=== PATIENT | female | born 1985 | race Caucasian/White ===

== ENCOUNTER → 2021-09-27 09:00 | Outpatient (CLI) | payer OTHER, SELFPAY ==
[2021-09-27 19:04] LABS: Add Manual Diff / Slide Review NO; Basophils Absolute Auto 100 /uL (0-100); Basophils Percent Auto 0.7 % (0-2); Eosinophils Absolute Auto 100 /uL (0-450); Eosinophils Percent Auto 1.2 % (2-4); Hematocrit 41.6 % (36-46); Hemoglobin 14.7 g/dL (12.0-16.0); Lymphocytes Absolute Auto 1700 /uL (1100-4500); Lymphocytes Percent Auto 19.6 % (25-40); Mean Corpuscular HGB Conc 35.2 % (30-36); Mean Corpuscular Hemoglobin 31.4 PG (26-34); Mean Corpuscular Volume 89.2 fL (80-100); Monocytes Absolute Auto 500 /uL (0-900); Monocytes Percent Auto 5.2 % (3-14); Neutrophils Absolute Auto 6500 /uL (1500-7000); Neutrophils Percent Auto 73.3 % (50-75); Platelet Count 310 X10^3/uL (150-400); Red Blood Cell Count 4.66 X10^6/uL (4.0-5.2); Red Cell Distribution Width 13.1 % (11.6-14.8); White Blood Cell Count 8.9 X10^3/uL (4.5-11.0)
[2021-09-27 19:15] LABS: Prothrombin Time 11.3 SECONDS (10.1-12.7)
[2021-09-27 19:18] LABS: HEMOLYSIS < 15 (0-50); Iron 139 ug/dL (37-170); PTT Partial Thromboplastin Tim 36 SECONDS (26.4-36.2)
[2021-09-27 19:20] LABS: Alanine Aminotransferase 29 IU/L (<35); Albumin 4.6 g/dL (3.5-5.0); Albumin Globulin Ratio 1.7 (1.0-2.8); Alkaline Phosphatase 88 U/L (38-126); Aspartate Aminotransferase 27 IU/L (14-36); BUN Creatinine Ratio 13.4 (6-22); Bilirubin Total 0.5 mg/dL (0.2-1.3); Blood Urea Nitrogen 9 mg/dL (7-17); Calcium 9.2 mg/dL (8.4-10.2); Carbon Dioxide 26 mmol/L (22-32); Chloride 105 mmol/L (98-107); Cholesterol 225 mg/dL (140-199); Estimated Glomerular Filt Rate > 60 mL/min (>60); Globulin 2.7 g/dL (1.7-4.1); Glucose 105 mg/dL (70-100); HDL Cholesterol 39 mg/dL (40-60); HEMOLYSIS < 15 (0-50); LDL Cholesterol Calculated 151 mg/dL (<100); Potassium 3.9 mmol/L (3.4-5.1); Sodium 139 mmol/L (137-145); Total Protein 7.3 g/dL (6.3-8.2); Triglycerides 176 mg/dL (35-150)
[2021-09-27 19:21] LABS: Hemoglobin A1C% w Est Avg Glu 5.2 % (4.0-6.0)
[2021-09-27 19:31] LABS: Percent Iron Saturation 42 % (15-50); Total Iron Binding Capacity 334 ug/dL (265-497); Transferrin 252 mg/dL (206-381); Vitamin D 25 Hydroxy (D3) 34.9 ng/mL (30.0-100.0)
[2021-09-27 19:38] LABS: Free T3, Triiodothyronine Free 4.05 pg/mL (2.77-5.27)
[2021-09-27 19:51] LABS: Thyroid Stimulating Hormone 1.51 uIU/mL (0.47-4.68)
[2021-09-27 19:58] LABS: Ferritin 125 ng/mL (6-137)
[2021-09-27 20:29] LABS: Folate 19.7 ng/mL (2.76-20.0); Vitamin B12 375 pg/mL (239-931)
[2021-10-11 16:08] LABS: Vitamin B1 149.4 nmol/L (66.5-200.0)
== END ==
PROVIDERS: PCP Family Medicine; Visit Provider Surgery
DX: E46 Unspecified protein-calorie malnutrition (principal); E55.9 Vitamin D deficiency, unspecified; Z01.812 Encounter for preprocedural laboratory examination
CPT/HCPCS: 80053; 80061; 82306; 82607; 82728; 82746; 83036; 83540; 83550; 84425; 84443; 84481; 85025; 85610; 85730

== ENCOUNTER → 2021-10-10 13:12 | Outpatient (CLI) | payer OTHER, SELFPAY ==
[2021-10-10 18:57] LABS: Blood Urea Nitrogen 9 mg/dL (7-17); Carbon Dioxide 27 mmol/L (22-32); Chloride 101 mmol/L (98-107); Estimated Glomerular Filt Rate > 60 mL/min (>60); Glucose 121 mg/dL (70-100); HEMOLYSIS < 15 (0-50); Potassium 4.1 mmol/L (3.4-5.1); Sodium 138 mmol/L (137-145)
== END ==
PROVIDERS: PCP Family Medicine; Visit Provider Physician Assistant
DX: I10 Essential (primary) hypertension (principal)
CPT/HCPCS: 80048

== ENCOUNTER → 2022-01-17 07:00 | Outpatient (CLI) | payer OTHER, SELFPAY ==
[2022-01-17 20:12] LABS: COVID19 - ORCAS (NP or Nasal) Negative (Negative)
== END ==
PROVIDERS: PCP Family Medicine; Visit Provider Family Medicine
DX: Z20.822 Contact with and (suspected) exposure to COVID-19 (principal); Z01.812 Encounter for preprocedural laboratory examination
CPT/HCPCS: C9803; U0003

== ENCOUNTER → 2022-03-20 11:10 | Outpatient (CLI) | payer OTHER, SELFPAY ==
[2022-03-20 19:39] LABS: Add Manual Diff / Slide Review NO; Basophils Absolute Auto 0 /uL (0-100); Basophils Percent Auto 0.5 % (0-2); Eosinophils Absolute Auto 100 /uL (0-450); Eosinophils Percent Auto 1.3 % (2-4); Hematocrit 39.1 % (36-46); Hemoglobin 13.4 g/dL (12.0-16.0); Lymphocytes Absolute Auto 1600 /uL (1100-4500); Mean Corpuscular HGB Conc 34.2 % (30-36); Mean Corpuscular Hemoglobin 30.8 PG (26-34); Mean Corpuscular Volume 89.9 fL (80-100); Monocytes Absolute Auto 400 /uL (0-900); Monocytes Percent Auto 6.4 % (3-14); Neutrophils Absolute Auto 4300 /uL (1500-7000); Neutrophils Percent Auto 66.8 % (50-75); Platelet Count 280 X10^3/uL (150-400); Red Blood Cell Count 4.35 X10^6/uL (4.0-5.2); Red Cell Distribution Width 13.3 % (11.6-14.8); White Blood Cell Count 6.4 X10^3/uL (4.5-11.0)
[2022-03-20 20:08] LABS: Alanine Aminotransferase 28 IU/L (<35); Albumin 4.4 g/dL (3.5-5.0); Albumin Globulin Ratio 1.7 (1.0-2.8); Alkaline Phosphatase 95 U/L (38-126); Aspartate Aminotransferase 26 IU/L (14-36); BUN Creatinine Ratio 13.8 (6-22); Bilirubin Total 0.4 mg/dL (0.2-1.3); Blood Urea Nitrogen 9 mg/dL (7-17); Calcium 9.4 mg/dL (8.4-10.2); Carbon Dioxide 24 mmol/L (22-32); Chloride 102 mmol/L (98-107); Estimated Glomerular Filt Rate > 60 mL/min (>60); Globulin 2.6 g/dL (1.7-4.1); Glucose 88 mg/dL (70-100); HEMOLYSIS < 15 (0-50); Potassium 4.1 mmol/L (3.4-5.1); Sodium 138 mmol/L (137-145)
[2022-03-20 20:36] LABS: Ferritin 231 ng/mL (6-137)
[2022-03-20 20:42] LABS: HEMOLYSIS < 15 (0-50); Total Iron Binding Capacity 251 ug/dL (265-497); Transferrin 176 mg/dL (206-381)
[2022-03-20 20:50] LABS: Vitamin B12 625 pg/mL (239-931)
[2022-03-20 20:53] LABS: Iron 102 ug/dL (37-170); Percent Iron Saturation 41 % (15-50)
[2022-03-27 07:10] LABS: Vitamin B1 138.7 nmol/L (66.5-200.0)
== END ==
PROVIDERS: PCP Family Medicine; Visit Provider Physician Assistant Medical
DX: K90.9 Intestinal malabsorption, unspecified (principal); Z98.84 Bariatric surgery status
CPT/HCPCS: 80053; 82306; 82607; 82728; 83540; 83550; 84425; 85025

== ENCOUNTER → 2022-07-15 08:30 | Outpatient (CLI) | payer OTHER, SELFPAY ==
[2022-07-23 13:54] LABS: Miscellaneous to LabCorp Comment:
== END ==
PROVIDERS: PCP Physician Assistant; Visit Provider Physician Assistant
DX: N76.0 Acute vaginitis (principal); Z11.3 Encounter for screening for infections with a predominantly sexual mode of transmission; B96.89 Other specified bacterial agents as the cause of diseases classified elsewhere
CPT/HCPCS: 87491; 87591; 87661; 87798; 87801

== ENCOUNTER → 2022-08-28 09:01 | Outpatient (CLI) | payer OTHER, SELFPAY ==
[2022-08-28 19:55] LABS: Add Manual Diff / Slide Review NO; Basophils Absolute Auto 0 /uL (0-100); Basophils Percent Auto 0.4 % (0-2); Eosinophils Absolute Auto 100 /uL (0-450); Eosinophils Percent Auto 1.5 % (2-4); Hemoglobin 13.8 g/dL (12.0-16.0); Lymphocytes Absolute Auto 1400 /uL (1100-4500); Lymphocytes Percent Auto 20.9 % (25-40); Mean Corpuscular HGB Conc 34.4 % (30-36); Mean Corpuscular Hemoglobin 31.1 PG (26-34); Mean Corpuscular Volume 90.2 fL (80-100); Monocytes Absolute Auto 400 /uL (0-900); Monocytes Percent Auto 6.2 % (3-14); Neutrophils Absolute Auto 4600 /uL (1500-7000); Platelet Count 318 X10^3/uL (150-400); Red Blood Cell Count 4.43 X10^6/uL (4.0-5.2); Red Cell Distribution Width 12.6 % (11.6-14.8); White Blood Cell Count 6.5 X10^3/uL (4.5-11.0)
[2022-08-28 19:56] LABS: HEMOLYSIS < 15 (0-50); Iron 116 ug/dL (37-170)
[2022-08-28 20:02] LABS: Alanine Aminotransferase 36 IU/L (<35); Albumin 4.3 g/dL (3.5-5.0); Albumin Globulin Ratio 1.6 (1.0-2.8); Alkaline Phosphatase 81 U/L (38-126); Aspartate Aminotransferase 31 IU/L (14-36); BUN Creatinine Ratio 20.3 (6-22); Bilirubin Total 0.5 mg/dL (0.2-1.3); Blood Urea Nitrogen 12 mg/dL (7-17); Calcium 9.4 mg/dL (8.4-10.2); Carbon Dioxide 27 mmol/L (22-32); Chloride 102 mmol/L (98-107); Cholesterol 193 mg/dL (140-199); Estimated Glomerular Filt Rate > 60 mL/min (>60); Globulin 2.7 g/dL (1.7-4.1); Glucose 97 mg/dL (70-100); HDL Cholesterol 38 mg/dL (40-60); HEMOLYSIS < 15 (0-50); LDL Cholesterol Calculated 129 mg/dL (<100); Potassium 3.9 mmol/L (3.4-5.1); Sodium 138 mmol/L (137-145); Triglycerides 131 mg/dL (35-150)
[2022-08-28 20:06] LABS: Percent Iron Saturation 43 % (15-50); Total Iron Binding Capacity 268 ug/dL (265-497); Transferrin 193 mg/dL (206-381)
[2022-08-28 20:19] LABS: Vitamin D 25 Hydroxy (D3) 72.6 ng/mL (30.0-100.0)
[2022-08-28 20:29] LABS: Thyroid Stimulating Hormone 1.53 uIU/mL (0.47-4.68)
[2022-08-28 20:37] LABS: Ferritin 192 ng/mL (6-137)
[2022-08-28 21:09] LABS: Folate > 20.0 ng/mL (2.76-20.0); Vitamin B12 599 pg/mL (239-931)
[2022-08-30 05:45] LABS: Labcorp Hemoglobin (Hb) A1c 5.3 % (4.8-5.6)
[2022-09-09 08:36] LABS: Vitamin B1 144.5 nmol/L (66.5-200.0)
== END ==
PROVIDERS: PCP Physician Assistant; Visit Provider Surgery
DX: E63.9 Nutritional deficiency, unspecified (principal); K90.9 Intestinal malabsorption, unspecified; Z98.84 Bariatric surgery status
CPT/HCPCS: 80053; 80061; 82306; 82607; 82728; 82746; 83036; 83540; 83550; 84425; 84443; 85025

== ENCOUNTER → 2023-05-04 09:25 | Outpatient (CLI) | payer OTHER, SELFPAY ==
[2023-05-04 20:27] LABS: Urine N gonorrhoeae NOT DETECTED
[2023-05-04 20:34] LABS: Urine Chlamydia NOT DETECTED
== END ==
PROVIDERS: PCP Family Medicine; Visit Provider Family Medicine
DX: Z20.2 Contact with and (suspected) exposure to infections with a predominantly sexual mode of transmission (principal)
CPT/HCPCS: 87491; 87591

== ENCOUNTER → 2023-08-27 09:16 | Outpatient (CLI) | payer OTHER, SELFPAY ==
[2023-08-27 22:13] LABS: Urine N gonorrhoeae NOT DETECTED
[2023-08-27 22:25] LABS: Urine Chlamydia NOT DETECTED
== END ==
PROVIDERS: PCP Family Medicine; Visit Provider Physician Assistant Medical
DX: R10.9 Unspecified abdominal pain (principal); N89.8 Other specified noninflammatory disorders of vagina; L30.4 Erythema intertrigo; Z20.2 Contact with and (suspected) exposure to infections with a predominantly sexual mode of transmission
CPT/HCPCS: 87491; 87591; 87798; 87801

== ENCOUNTER → 2023-09-01 09:03 | Outpatient (CLI) | payer OTHER, SELFPAY ==
[2023-09-01 19:07] LABS: Add Manual Diff / Slide Review NO; Basophils Absolute Auto 0 /uL (0-100); Basophils Percent Auto 0.3 % (0-2); Eosinophils Absolute Auto 100 /uL (0-450); Eosinophils Percent Auto 1.5 % (2-4); Hematocrit 41.6 % (36-46); Hemoglobin 14.3 g/dL (12.0-16.0); Lymphocytes Absolute Auto 1400 /uL (1100-4500); Lymphocytes Percent Auto 24.4 % (25-40); Mean Corpuscular HGB Conc 34.5 % (30-36); Mean Corpuscular Hemoglobin 31.9 PG (26-34); Mean Corpuscular Volume 92.5 fL (80-100); Monocytes Absolute Auto 500 /uL (0-900); Neutrophils Absolute Auto 3800 /uL (1500-7000); Neutrophils Percent Auto 65.8 % (50-75); Platelet Count 285 X10^3/uL (150-400); Red Blood Cell Count 4.49 X10^6/uL (4.0-5.2); White Blood Cell Count 5.7 X10^3/uL (4.5-11.0)
[2023-09-01 19:29] LABS: HEMOLYSIS < 15 (0-50); Iron 166 ug/dL (37-170)
[2023-09-01 19:39] LABS: Percent Iron Saturation 64 % (15-50); Total Iron Binding Capacity 259 ug/dL (265-497); Transferrin 203 mg/dL (206-381)
[2023-09-01 19:41] LABS: Alanine Aminotransferase 38 IU/L (<35); Albumin 4.6 g/dL (3.5-5.0); Albumin Globulin Ratio 1.9 (1.0-2.8); Alkaline Phosphatase 56 U/L (38-126); Aspartate Aminotransferase 35 IU/L (14-36); BUN Creatinine Ratio 21.2 (6-22); Bilirubin Total 0.6 mg/dL (0.2-1.3); Blood Urea Nitrogen 14 mg/dL (7-17); Calcium 9.7 mg/dL (8.4-10.2); Carbon Dioxide 29 mmol/L (22-32); Chloride 105 mmol/L (98-107); Cholesterol 161 mg/dL (140-199); Estimated Glomerular Filt Rate > 60 mL/min (>60); Globulin 2.4 g/dL (1.7-4.1); Glucose 96 mg/dL (70-100); HDL Cholesterol 51 mg/dL (40-60); HEMOLYSIS < 15 (0-50); LDL Cholesterol Calculated 86 mg/dL (<100); Potassium 3.8 mmol/L (3.4-5.1); Sodium 139 mmol/L (137-145); Triglycerides 120 mg/dL (35-150)
[2023-09-01 20:00] LABS: TSH w/ Reflex to FT4 1.47 uIU/mL (0.47-4.68)
[2023-09-01 20:18] LABS: Ferritin 183 ng/mL (6-137)
[2023-09-01 20:50] LABS: Folate > 20.0 ng/mL (2.76-20.0)
[2023-09-01 21:27] LABS: Vitamin B12 Reflex MMA if <400 949 pg/mL (239-931)
[2023-09-02 05:20] LABS: Hepatitis B Core Antibody Negative (Negative)
[2023-09-02 16:57] LABS: Vitamin D 25 Hydroxy (D3) 75.6 ng/mL (30.0-100.0)
[2023-09-03 18:03] LABS: Hepatitis B Surface Antigen NEGATIVE s/c (NEGATIVE)
[2023-09-03 18:18] LABS: Hep C Virus Ab w/Reflex Quant NEGATIVE s/c (NEGATIVE)
[2023-09-04 05:12] LABS: Hepatitis B Surf Ab Qualitativ Reactive (.)
[2023-09-07 16:56] LABS: Vitamin B1 193.5 nmol/L (66.5-200.0)
== END ==
PROVIDERS: PCP Family Medicine; Visit Provider Family Medicine
DX: Z98.84 Bariatric surgery status (principal); I10 Essential (primary) hypertension; E63.9 Nutritional deficiency, unspecified; K90.9 Intestinal malabsorption, unspecified; R74.01 Elevation of levels of liver transaminase levels; R79.89 Other specified abnormal findings of blood chemistry; Z78.9 Other specified health status; G62.9 Polyneuropathy, unspecified
CPT/HCPCS: 80053; 80061; 82306; 82607; 82728; 82746; 83540; 83550; 84425; 84443; 85025; 86704; 86706; 86803; 87340

== ENCOUNTER → 2023-10-13 10:49 | Outpatient (CLI) | payer OTHER, SELFPAY ==
[2023-10-13 21:09] LABS: Urine N gonorrhoeae NOT DETECTED
[2023-10-13 21:12] LABS: Urine Chlamydia NOT DETECTED
== END ==
PROVIDERS: PCP Family Medicine; Visit Provider Physician Assistant
DX: Z11.3 Encounter for screening for infections with a predominantly sexual mode of transmission (principal); R31.9 Hematuria, unspecified; R10.9 Unspecified abdominal pain
CPT/HCPCS: 87086; 87491; 87591

== ENCOUNTER → 2023-10-16 11:33 | Outpatient (CLI) | payer OTHER, SELFPAY ==
[2023-10-18 16:44] LABS: HSV 2 IGG AB < 0.91 index (0.00-0.90); HSV1IGG 1.12 index (0.00-0.90)
== END ==
PROVIDERS: PCP Family Medicine; Visit Provider Physician Assistant
DX: Z11.3 Encounter for screening for infections with a predominantly sexual mode of transmission (principal)
CPT/HCPCS: 86695; 86696

== ENCOUNTER → 2023-11-27 08:28 | Outpatient (CLI) | payer OTHER, SELFPAY ==
[2023-11-27 18:15] LABS: HEMOLYSIS < 15 (0-50); Iron 99 ug/dL (37-170)
[2023-11-27 18:17] LABS: Alanine Aminotransferase 36 IU/L (<35); Albumin 4.2 g/dL (3.5-5.0); Albumin Globulin Ratio 1.8 (1.0-2.8); Alkaline Phosphatase 54 U/L (38-126); Aspartate Aminotransferase 31 IU/L (14-36); Bilirubin Total 0.4 mg/dL (0.2-1.3); Globulin 2.4 g/dL (1.7-4.1); HEMOLYSIS < 15 (0-50); Total Protein 6.6 g/dL (6.3-8.2)
[2023-11-27 18:27] LABS: Percent Iron Saturation 34 % (15-50); Total Iron Binding Capacity 293 ug/dL (265-497); Transferrin 248 mg/dL (206-381)
[2023-11-27 18:50] LABS: Ferritin 56 ng/mL (6-137)
== END ==
PROVIDERS: PCP Family Medicine; Visit Provider Family Medicine
DX: R79.89 Other specified abnormal findings of blood chemistry (principal); R74.01 Elevation of levels of liver transaminase levels
CPT/HCPCS: 80076; 82728; 83540; 83550

== ENCOUNTER → 2023-12-22 11:59 | Outpatient (CLI) | payer OTHER, SELFPAY ==
[2023-12-22 21:51] LABS: Urine N gonorrhoeae NOT DETECTED
[2023-12-22 22:07] LABS: Urine Chlamydia NOT DETECTED
[2023-12-24 00:36] LABS: HBsAg Screen Negative (Negative); Hepatitis A Antibody IgM Negative (Negative); Hepatitis B Core Antibody IgM Negative (Negative); Hepatitis C Antibody Non Reactive (Non Reactive)
[2023-12-24 22:10] LABS: Treponema pallidum Antibodies Non Reactive (Non Reactive)
[2023-12-26 20:38] LABS: HIV 1 RNA Non Reactive (Non Reactive); HIV 2 RNA Non Reactive (Non Reactive)
== END ==
PROVIDERS: PCP Family Medicine; Visit Provider Family Medicine
DX: Z11.3 Encounter for screening for infections with a predominantly sexual mode of transmission (principal)
CPT/HCPCS: 80074; 86696; 86780; 87491; 87535; 87538; 87591

== ENCOUNTER → 2024-02-11 10:48 | Outpatient (CLI) | payer OTHER, SELFPAY | PROVIDERS: PCP Family Medicine; Visit Provider Physician Assistant Medical | DX: B37.2 Candidiasis of skin and nail (principal) | CPT/HCPCS: 87070; 87075; 87205 ==

== ENCOUNTER → 2024-03-15 10:02 | Outpatient (CLI) | payer OTHER, SELFPAY ==
[2024-03-15 18:56] LABS: Hematocrit 37.5 % (36-46); Mean Corpuscular HGB Conc 34.6 % (30-36); Mean Corpuscular Hemoglobin 31.9 PG (26-34); Mean Corpuscular Volume 92.3 fL (80-100); Platelet Count 260 X10^3/uL (150-400); Red Blood Cell Count 4.07 X10^6/uL (4.0-5.2); Red Cell Distribution Width 12.9 % (11.6-14.8); White Blood Cell Count 6.6 X10^3/uL (4.5-11.0)
[2024-03-15 19:02] LABS: Alanine Aminotransferase 23 IU/L (<35); Albumin 4.3 g/dL (3.5-5.0); Albumin Globulin Ratio 1.5 (1.0-2.8); Alkaline Phosphatase 52 U/L (38-126); Aspartate Aminotransferase 91 IU/L (14-36); BUN Creatinine Ratio 22.9 (6-22); Bilirubin Total 0.6 mg/dL (0.2-1.3); Blood Urea Nitrogen 16 mg/dL (7-17); Calcium 9.1 mg/dL (8.4-10.2); Carbon Dioxide 28 mmol/L (22-32); Chloride 102 mmol/L (98-107); Cholesterol 158 mg/dL (140-199); Estimated Glomerular Filt Rate > 60 mL/min (>60); Globulin 2.9 g/dL (1.7-4.1); Glucose 89 mg/dL (70-100); HDL Cholesterol 54 mg/dL (40-60); HEMOLYSIS 23 (0-50); LDL Cholesterol Calculated 89 mg/dL (<100); Potassium 3.9 mmol/L (3.4-5.1); Sodium 136 mmol/L (137-145); Total Protein 7.2 g/dL (6.3-8.2); Triglycerides 75 mg/dL (35-150)
[2024-03-15 19:24] LABS: Vitamin D 25 Hydroxy (D3) 53.4 ng/mL (30.0-100.0)
[2024-03-15 19:46] LABS: Thyroid Stimulating Hormone 1.41 uIU/mL (0.47-4.68)
[2024-03-15 20:21] LABS: Folate > 20.0 ng/mL (2.76-20.0); Vitamin B12 477 pg/mL (239-931)
== END ==
PROVIDERS: PCP Family Medicine; Visit Provider Surgery
DX: E63.9 Nutritional deficiency, unspecified (principal); K90.9 Intestinal malabsorption, unspecified; Z98.84 Bariatric surgery status; E55.9 Vitamin D deficiency, unspecified
CPT/HCPCS: 80053; 80061; 82306; 82607; 82746; 83036; 84425; 84443; 85027

== ENCOUNTER → 2024-05-18 13:06 | Outpatient (CLI) | payer OTHER, SELFPAY | PROVIDERS: PCP Family Medicine; Visit Provider Nurse Practitioner Adult Health | DX: N39.0 Urinary tract infection, site not specified (principal); R10.9 Unspecified abdominal pain | CPT/HCPCS: 87491; 87591; 87661; 87798; 87801 ==

== ENCOUNTER → 2024-05-23 10:36 | Outpatient (CLI) | payer OTHER, SELFPAY | PROVIDERS: PCP Family Medicine; Visit Provider Nurse Practitioner Adult Health | DX: Z11.3 Encounter for screening for infections with a predominantly sexual mode of transmission (principal); N39.0 Urinary tract infection, site not specified; R10.9 Unspecified abdominal pain | CPT/HCPCS: 87086; 87535; 87538 ==

== ENCOUNTER → 2024-06-29 12:54 | Outpatient (CLI) | payer OTHER, SELFPAY ==
[2024-06-29 18:55] LABS: HEMOLYSIS < 15 (0-50); Iron 97 ug/dL (37-170)
[2024-06-29 18:59] LABS: Alanine Aminotransferase 39 IU/L (<35); Albumin 4.6 g/dL (3.5-5.0); Alkaline Phosphatase 47 U/L (38-126); Aspartate Aminotransferase 30 IU/L (14-36); BUN Creatinine Ratio 17.1 (6-22); Bilirubin Total 0.4 mg/dL (0.2-1.3); Blood Urea Nitrogen 13 mg/dL (7-17); Calcium 9.5 mg/dL (8.4-10.2); Carbon Dioxide 23 mmol/L (22-32); Chloride 106 mmol/L (98-107); Estimated Glomerular Filt Rate > 60 mL/min (>60); Globulin 2.3 g/dL (1.7-4.1); Glucose 114 mg/dL (70-100); HEMOLYSIS < 15 (0-50); Potassium 3.8 mmol/L (3.4-5.1); Sodium 137 mmol/L (137-145); Total Protein 6.9 g/dL (6.3-8.2)
[2024-06-29 19:06] LABS: Percent Iron Saturation 39 % (15-50); Total Iron Binding Capacity 248 ug/dL (265-497); Transferrin 224 mg/dL (206-381)
[2024-06-29 19:33] LABS: Ferritin 123 ng/mL (6-137)
[2024-07-01 00:38] LABS: HBsAg Screen Negative (Negative); Hepatitis A Antibody IgM Negative (Negative); Hepatitis B Core Antibody IgM Negative (Negative); Hepatitis C Antibody Non Reactive (Non Reactive)
== END ==
PROVIDERS: PCP Family Medicine; Visit Provider Family Medicine
DX: I10 Essential (primary) hypertension (principal); R74.01 Elevation of levels of liver transaminase levels
CPT/HCPCS: 80053; 80074; 82728; 83540; 83550

== ENCOUNTER → 2024-10-25 10:47 | Outpatient (CLI) | payer OTHER, SELFPAY | PROVIDERS: PCP Family Medicine; Visit Provider Physician Assistant | DX: T14.8XXA Other injury of unspecified body region, initial encounter (principal); Z98.890 Other specified postprocedural states | CPT/HCPCS: 87070; 87075; 87205 ==

== ENCOUNTER → 2025-04-25 12:03 | Outpatient (CLI) | payer OTHER, SELFPAY ==
[2025-04-25 20:06] LABS: Alanine Aminotransferase 43 IU/L (<35); Albumin 4.8 g/dL (3.5-5.0); Albumin Globulin Ratio 1.8 (1.0-2.8); Alkaline Phosphatase 65 U/L (38-126); Blood Urea Nitrogen 14 mg/dL (7-17); Calcium 9.9 mg/dL (8.4-10.2); Carbon Dioxide 27 mmol/L (22-32); Chloride 101 mmol/L (98-107); Cholesterol 214 mg/dL (140-199); Estimated Glomerular Filt Rate > 60 mL/min (>60); Globulin 2.6 g/dL (1.7-4.1); Glucose 85 mg/dL (70-99); HDL Cholesterol 50 mg/dL (40-60); HEMOLYSIS 18 (0-50); Potassium 4.4 mmol/L (3.4-5.1); Sodium 138 mmol/L (137-145); Total Protein 7.4 g/dL (6.3-8.2); Triglycerides 164 mg/dL (35-150)
[2025-04-25 20:11] LABS: HEMOLYSIS 19 (0-50); Iron 157 ug/dL (37-170)
[2025-04-25 20:22] LABS: Percent Iron Saturation 53 % (15-50); Total Iron Binding Capacity 299 ug/dL (265-497); Transferrin 244 mg/dL (206-381)
[2025-04-25 20:44] LABS: Ferritin 34 ng/mL (6-137)
== END ==
PROVIDERS: PCP Family Medicine; Visit Provider Family Medicine
DX: D62 Acute posthemorrhagic anemia (principal); R79.89 Other specified abnormal findings of blood chemistry; I10 Essential (primary) hypertension; Z98.84 Bariatric surgery status
CPT/HCPCS: 80053; 80061; 82728; 83540; 83550